=== PATIENT | male | born 1995 | race Caucasian/White ===

== ENCOUNTER 2017-08-31 08:57 | Emergency (ER) | payer BC ==
--- NOTE | 2017-08-31 09:43 | RAD ---
PA AND LATERAL CHEST: Indication: Feeling weak, no energy. FINDINGS: Lungs are clear. Cardiomediastinal silhouette is within normal limits. There is mild thoracolumbar s coliosis. IMPRESSION: No acute cardiopulmonary abnormality. POS: [facility]
[2017-08-31 09:44] LABS: #Basophils 0.1 thou/uL (0.0-0.2); #Eosinphils 0.1 thou/uL (0.0-0.7); #Monocytes 0.4 thou/uL (0.11-0.59); #Neutrophils 3.6 thou/uL (1.40-6.50); %Eosinophils 0.9 % (0.0-10.0); %Lymphocytes 31.8 % (21.0-51.0); %Monocytes 6.8 % (0.0-10.0); Hematocrit 47.3 % (42.0-52.0); Mean Platelet Volume 7.7 fL (7.4-10.4); Red Blood Cell (RBC) Count 5.31 mill/uL (4.70-6.10); White Blood Cell (WBC) Count 6.1 thou/uL (4.8-10.8)
[2017-08-31 09:47] LABS: PTT 26.9 SEC (22.9-36.1); Prothrombin Time 13.2 SEC (12.0-14.7)
[2017-08-31 09:58] LABS: ALT (SGPT) 11 U/L (8-55); AST (SGOT) 16 U/L (5-34); Alkaline Phosphatase 66 U/L (40-150); Anion Gap 17 mmol/L (10-20); BUN (Urea Nitrogen) 12 mg/dL (8.9-20.6); Calc. Creatinine Clearance 0 mL/min (70-130); Calcium 9.8 mg/dL (7.8-10.44); Carbon Dioxide 22 mmol/L (22-29); Chloride 106 mmol/L (98-107); Estimated GFR-MDRD 90; Globulin 3.2 g/dL (2.4-3.5); Lipase 33 U/L (8-78); Troponin I Less than 0.010 ng/mL (< 0.028)
[2017-08-31 10:54] LABS: Bilirubin Negative (Negative); Blood, Urine Trace (Negative); Glucose, Urine (Dipstick) Negative (Negative); Ketone, Urine 15 mg/dL (Negative); Nitrite Negative (Negative); Protein, Urine (Dipstick) Trace mg/dL (Neg-Trace)
[2017-08-31 10:58] LABS: RBC/HPF 0-3 HPF (0-3); WBC/HPF 0-3 HPF (0-3)
[2017-08-31 11:00] LABS: Bacteria/HPF None Seen HPF (None Seen); Squamous Epithelial None Seen HPF (0-3)
== END 2017-08-31 11:19 | disposition home or self-care (01) ==
LOC: SCSER 08:57
DX: R07.89 Other chest pain (principal); R11.0 Nausea; R53.83 Other fatigue; F34.1 Dysthymic disorder
CPT/HCPCS: 71020; 80053; 81003; 81015; 82553; 83690; 84484; 85025; 85610; 85730; 86308; 93005; 96360